=== PATIENT | male | born 1995 ===

== ENCOUNTER 2018-10-11 18:56 | Emergency (ER) | payer SELFPAY ==
[2018-10-11] MEDS ORDERED: ACETAMINOPHEN 325 MG TABLET ONE (21:00)
[2018-10-11] MEDS ORDERED: ONDANSETRON 4 MG/2 ML VIAL ONE (21:00)
[2018-10-11] MEDS ORDERED: NA CHLORIDE 0.9% 1,000 ML ONE (21:00)
[2018-10-11 21:27] LABS: Absolute Lymphocytes (CBC) 1.1 K/uL (0.7-4.9); Absolute Monocytes 0.5 K/uL (0.1-1.3); Absolute Neutrophil 9.3 K/uL (1.8-8.0); Basophils % 0.4 % (0-1.3); Eosinophils % 0.4 % (0-4.4); Hematocrit 47.7 % (39.6-49.0); MPV 10.2 fL (7.6-11.3); Monocytes % 4.7 % (3.3-12.3); RBC Red Blood Cell Count 5.89 M/uL (4.33-5.43)
[2018-10-11 21:47] LABS: Urine Bacteria NONE SEEN /HPF (NONE SEEN); Urine RBC <5 /HPF (NONE SEEN)
[2018-10-11 21:48] LABS: Urine Culture Reflex Order NOT NEEDED
[2018-10-11 21:49] LABS: ALT/SGPT 36 U/L (12-78); AST/SGOT 16 U/L (15-37); Alkaline Phosphatase 179 U/L (45-117); BUN Blood Urea Nitrogen 12 mg/dL (7-18); Bicarbonate 27 mmol/L (21-32); Bilirubin Direct 0.1 mg/dL (0-0.2); Bilirubin Total 0.5 mg/dL (0.2-1.0); Glucose Level 88 mg/dL (74-106); Lipase 70 U/L (73-393); Potassium 4.2 mmol/L (3.5-5.1); Sodium Level 137 mmol/L (136-145)
[2018-10-11 22:41] LABS: Urine Blood 1+ (NEG); Urine Glucose NEGATIVE (NEG); Urine Protein NEGATIVE (NEG); Urine pH 5.5 (5.0-7.0)
--- NOTE | 2018-10-11 23:39 | EDPHYS ---
Physician Documentation [facility] Name: Jean-Paul Will Age: 23 yrs Sex: Male : 1995 Arrival Date: 10/11/2018 Time: 18:57 Bed 6 Private MD: ED Physician Ayaz Florence HPI: 10/12 02:28 This 23 yrs old Male presents to ER via Ambulatory with complaints of Diarrhea. gs 02:28 The patient presents to the emergency department with nausea, vomiting, diarrhea. gs Onset: The symptoms/episode began/occurred 3 day(s) ago. Possible causes: unknown. The symptoms are aggravated by nothing. The symptoms are alleviated by nothing. Associated signs and symptoms: Pertinent positives: fever, low back pain. Severity of symptoms: At their worst the symptoms were moderate in the emergency department the symptoms are unchanged. The patient has experienced similar episodes in the past, a few times. The patient has not recently seen a physician. Historical: - Allergies: 10/11 19:26 Amoxicillin; bb 19:26 Benadryl; bb - Home Meds: 19:26 None [Active]; bb - PMHx: 19:26 Hypertension; bb - PSHx: 19:26 None; bb - Immunization history:: Adult Immunizations up to date. - Social history:: Smoking status: Patient uses tobacco products, smokes one-half pack cigarettes per day, Patient uses alcohol, occasionally. Patient/guardian denies using street drugs. - Ebola Screening: : No symptoms or risks identified at this time. ROS: 10/12 02:28 All other systems are negative. gs Exam: 02:28 Head/Face: Normocephalic, atraumatic. Eyes: Pupils equal round and reactive to light, gs extra-ocular motions intact. Lids and lashes normal. Conjunctiva and sclera are non-icteric and not injected. Cornea within normal limits. Periorbital areas with no swelling, redness, or edema. ENT: Nares patent. No nasal discharge, no septal abnormalities noted. Tympanic membranes are normal and external auditory canals are clear. Oropharynx with no redness, swelling, or masses, exudates, or evidence of obstruction, uvula midline. Mucous membranes moist. Neck: Trachea midline, no thyromegaly or masses palpated, and no cervical lymphadenopathy. Supple, full range of motion without nuchal rigidity, or vertebral point tenderness. No Meningismus. Chest/axilla: Normal chest wall appearance and motion. Nontender with no deformity. No lesions are appreciated. 02:28 Respiratory: Lungs have equal breath sounds bilaterally, clear to auscultation and percussion. No rales, rhonchi or wheezes noted. No increased work of breathing, no retractions or nasal flaring. Abdomen/GI: Soft, non-tender, with normal bowel sounds. No distension or tympany. No guarding or rebound. No evidence of tenderness throughout. Skin: Warm, dry with normal turgor. Normal color with no rashes, no lesions, and no evidence of cellulitis. MS/ Extremity: Pulses equal, no cyanosis. Neurovascular intact. Full, normal range of motion. Neuro: Awake and alert, GCS 15, oriented to person, place, time, and situation. Cranial nerves II-XII grossly intact. Motor strength 5/5 in all extremities. Sensory grossly intact. Cerebellar exam normal. Normal gait. 02:28 Constitutional: The patient appears alert, awake. 02:28 Cardiovascular: Rate: tachycardic, Rhythm: regular, Pulses: no pulse deficits are appreciated. 02:28 Back: CVA tenderness, that is mild, is noted bilaterally. Vital Signs: 10/11 19:26 BP 144 / 108; Pulse 114; Resp 18; Temp 100(O); Pulse Ox 98% on R/A; Weight 104.33 kg bb (R); Height 5 ft. 7 in. (170.18 cm) (R); Pain 6/10; 20:12 BP 131 / 50; Pulse 114; Resp 18 S; Pulse Ox 100% on R/A; jd3 21:44 BP 128 / 37; Pulse 94; Resp 18; Pulse Ox 98% on R/A; ea 23:45 BP 125 / 84; Pulse 77; Resp 18; Temp 97.8(O); Pulse Ox 100% on R/A; Pain 0/10; fc 19:26 Body Mass Index 36.02 (104.33 kg, 170.18 cm) bb MDM: 20:26 Patient medically screened. 10/12 02:28 Differential diagnosis: viral gastroenteritis, gastroenteritis, flu,stone,uti. Data gs reviewed: vital signs, nurses notes. 02:28 Counseling: I had a detailed discussion with the patient and/or guardian regarding: the historical points, exam findings, and any diagnostic results supporting the discharge/admit diagnosis, lab results, radiology results, the need for outpatient follow up. Response to treatment: the patient's symptoms have markedly improved after treatment, the patient's condition has returned to base line, and as a result, I will discharge patient. 10/11 20:27 Order name: Basic Metabolic Panel; Complete Time: 21:54 10/11 20:27 Order name: CBC with Diff; Complete Time: :54 10/11 20:27 Order name: Hepatic Function; Complete Time: :54 10/11 20:27 Order name: Lipase; Complete Time: :54 10/11 20:27 Order name: Urine Microscopic Only; Complete Time: :54 10/11 20:27 Order name: Flu; Complete Time: 21:54 10/11 20:27 Order name: IV Saline Lock; Complete Time: 21:23 10/11 20:27 Order name: Labs collected and sent; Complete Time: 21:23 10/11 20:27 Order name: Urine Dipstick-Ancillary (obtain specimen); Complete Time: 21:14 10/11 21:29 Order name: Urine Dipstick--Ancillary (enter results); Complete Time: 22:55 2 10/11 21:54 Order name: CT Stone Protocol Administered Medications: 10/11 21:19 Drug: NS 0.9% 1000 ml Route: IV; Rate: 1 bolus; Site: right antecubital; ea 23:50 Follow up: Response: No adverse reaction; Marked relief of symptoms; IV Status: fc Completed infusion; IV Intake: 1000ml 21:20 Drug: Zofran 4 mg Route: IVP; Site: right antecubital; ea 23:50 Follow up: Response: No adverse reaction; Nausea is decreased fc 21:20 Drug: Tylenol 650 mg Route: PO; ea 23:50 Follow up: Response: No adverse reaction; Temperature is decreased fc Disposition: 10/11/18 23:38 Discharged to Home. Impression: Fever presenting with conditions classified elsewhere, Diarrhea, unspecified. - Condition is Stable. - Discharge Instructions: Diarrhea, Adult, Viral Gastroenteritis, Adult, [id number]. - Prescriptions for Zofran 4 mg Oral Tablet - take 1 tablet by ORAL route every 12 hours As needed; 6 tablet. - Medication Reconciliation Form, Thank You Letter, Antibiotic Education, Prescription Opioid Use form. - Follow up: Private Physician; When: 2 - 3 days; Reason: Re-evaluation by your physician. Signatures: Dispatcher [employer] Shayla Cassidy RN RN fc Ballard, Brenda, RN RN bb Antunez, Elena, RN RN ea Starr, Gregory, MD MD gs Corrections: (The following items were deleted from the chart) 23:53 23:38 10/11/2018 23:38 Discharged to Home. Impression: Fever presenting with conditions fc classified elsewhere; Diarrhea, unspecified. Condition is Stable. Forms are Medication Reconciliation Form, Thank You Letter, Antibiotic Education, Prescription Opioid Use. Follow up: Private Physician; When: 2 - 3 days; Reason: Re-evaluation by your physician. gs
--- NOTE | 2018-10-11 23:39 | ER ---
Nurse's Notes [facility] Name: Jean-Paul Will Age: 23 yrs Sex: Male : 1995 Arrival Date: 10/11/2018 Time: 18:57 Bed 6 Private MD: Diagnosis: Fever presenting with conditions classified elsewhere;Diarrhea, unspecified Presentation: 10/11 19:24 Presenting complaint: Patient states: he has been having low back pain constantly x 1 bb week prior to that is was intermittent denies dysuria woke up this morning with nausea, diarrhea, fatigue, and noticed some red spots under his eyes. Transition of care: patient was not received from another setting of care. Onset of symptoms was October 04, 2018. Risk Assessment: Do you want to hurt yourself or someone else? Patient reports no desire to harm self or others. Initial Sepsis Screen: Does the patient meet any 2 criteria? No. Patient's initial sepsis screen is negative. Does the patient have a suspected source of infection? No. Patient's initial sepsis screen is negative. Care prior to arrival: None. 19:24 Method Of Arrival: Ambulatory bb 19:24 Acuity: CHASITY 3 bb Historical: - Allergies: 19:26 Amoxicillin; bb 19:26 Benadryl; bb - Home Meds: 19:26 None [Active]; bb - PMHx: 19:26 Hypertension; bb - PSHx: 19:26 None; bb - Immunization history:: Adult Immunizations up to date. - Social history:: Smoking status: Patient uses tobacco products, smokes one-half pack cigarettes per day, Patient uses alcohol, occasionally. Patient/guardian denies using street drugs. - Ebola Screening: : No symptoms or risks identified at this time. Screenin:07 Abuse screen: Denies threats or abuse. Nutritional screening: No deficits noted. jd3 Tuberculosis screening: No symptoms or risk factors identified. Fall Risk Ambulatory Aid- None/Bed Rest/Nurse Assist (0 pts). Gait- Normal/Bed Rest/Wheelchair (0 pts) Mental Status- Oriented to own ability (0 pts). Total Esparza Fall Scale indicates No Risk (0-24 pts). Assessment: 20:05 General: Appears in no apparent distress. uncomfortable, Behavior is calm, cooperative, jd3 appropriate for age. Pain: Complains of pain in low back area Quality of pain is described as aching. Neuro: Level of Consciousness is awake, alert, obeys commands, Oriented to person, place, time, situation, Appropriate for age. Cardiovascular: Heart tones S1 S2 present Capillary refill < 3 seconds Patient's skin is warm and dry. Respiratory: Airway is patent Respiratory effort is even, unlabored, Respiratory pattern is regular, symmetrical, Breath sounds are clear bilaterally. GI: Abdomen is round non-distended, Bowel sounds present X 4 quads. Abd is soft and non tender X 4 quads. Reports nausea. : No signs and/or symptoms were reported regarding the genitourinary system. EENT: No signs and/or symptoms were reported regarding the EENT system. Derm: Skin is intact, Skin is dry, Skin is normal, Skin temperature is warm Rash noted that is itchy, red, on right eye and left eye. Musculoskeletal: Circulation, motion, and sensation intact. Range of motion: intact in all extremities. 21:43 Reassessment: Patient and/or family updated on plan of care and expected duration. Pain ea level reassessed. Patient is alert, oriented x 3, equal unlabored respirations, skin warm/dry/pink. 22:53 Reassessment: Patient and/or family updated on plan of care and expected duration. Pain ea level reassessed. Patient is alert, oriented x 3, equal unlabored respirations, skin warm/dry/pink. 23:52 Reassessment: Patient and/or family updated on plan of care and expected duration. Pain jd3 level reassessed. Patient is alert, oriented x 3, equal unlabored respirations, skin warm/dry/pink. Vital Signs: 19:26 BP 144 / 108; Pulse 114; Resp 18; Temp 100(O); Pulse Ox 98% on R/A; Weight 104.33 kg bb (R); Height 5 ft. 7 in. (170.18 cm) (R); Pain 6/10; 20:12 BP 131 / 50; Pulse 114; Resp 18 S; Pulse Ox 100% on R/A; jd3 21:44 BP 128 / 37; Pulse 94; Resp 18; Pulse Ox 98% on R/A; ea 23:45 BP 125 / 84; Pulse 77; Resp 18; Temp 97.8(O); Pulse Ox 100% on R/A; Pain 0/10; fc 19:26 Body Mass Index 36.02 (104.33 kg, 170.18 cm) bb ED Course: 18:57 Patient arrived in ED. rg4 19:26 Triage completed. bb 19:26 Arm band placed on right wrist. Patient placed in waiting room, Patient notified of bb wait time. 20:05 Ben Montenegro RN is Primary Nurse. jd3 20:07 Ayaz Florence MD is Attending Physician. gs 20:08 Patient has correct armband on for positive identification. Bed in low position. Call jd3 light in reach. Side rails up X 1. Adult w/ patient. 21:10 Inserted saline lock: 20 gauge in right antecubital area, using aseptic technique. ea Blood collected. 21:14 Missed attempt(s): 22 gauge in right hand. lt1 21:14 Flu and/or RSV swab sent to lab. lt1 21:14 Flu Sent. lt1 22:21 CT Stone Protocol In Process Unspecified. EDMS 23:49 No provider procedures requiring assistance completed. IV discontinued, intact, fc bleeding controlled, No redness/swelling at site. Pressure dressing applied. Administered Medications: 21:19 Drug: NS 0.9% 1000 ml Route: IV; Rate: 1 bolus; Site: right antecubital; ea 23:50 Follow up: Response: No adverse reaction; Marked relief of symptoms; IV Status: fc Completed infusion; IV Intake: 1000ml 21:20 Drug: Zofran 4 mg Route: IVP; Site: right antecubital; ea 23:50 Follow up: Response: No adverse reaction; Nausea is decreased fc 21:20 Drug: Tylenol 650 mg Route: PO; ea 23:50 Follow up: Response: No adverse reaction; Temperature is decreased fc Intake: 23:50 IV: 1000ml; Total: 1000ml. fc Outcome: 23:38 Discharge ordered by . gs 23:52 Discharged to home ambulatory, with friend. fc 23:52 Condition: good 23:52 Discharge instructions given to patient, friend, Instructed on discharge instructions, follow up and referral plans. medication usage, increase fluid intake Demonstrated understanding of instructions, follow-up care, medications, increased fluid intake Prescriptions given X 1. 23:53 Patient left the ED. fc Signatures: Dispatcher [facility] EDMN Shayla Betancourt RN RN Courtney Merrill, RN RN jailyn Archer, Vivi rg4 Julia Rocha, RN RN Ayaz Dhaliwal MD MD gs Davies, Jonathon RN RN jd3 Kelsi Castro 1
--- NOTE | 2018-10-12 11:38 | RAD REPORT ---
EXAM DESCRIPTION: CT - Stone Protocol - 10/11/2018 10:50 pm CLINICAL HISTORY: Abdominal pain. COMPARISON: None. TECHNIQUE: CT scan of the abdomen and pelvis without IV contrast. This exam was performed according to our departmental dose-optimization program, which includes automated exposure control, adjustment of the mA and/or kV according to patient size and/or use of iterative reconstruction technique. FINDINGS: The lung bases are clear. No pleural or pericardial effusions. There is no hiatal hernia. The liver, spleen, pancreas, gallbladder, adrenal glands, and kidneys are unremarkable. No urinary st ones are seen. The pelvic organs are also unremarkable. No small bowel obstruction. The appendix is normal. There is no evidence of diverticulitis. No intrap eritoneal free fluid or free air is identified. There are mildly prominent mesenteric lymph nodes, no n-specific. The aorta is normal caliber. No acute osseous findings are appreciated. IMPRESSION: 1. No urinary stones or hydronephrosis. 2. Mildly prominent mesenteric lymph nodes, non-specific. This may be secondary to recent infection /inflammation. Electronically signed by: Goran Hagen MD 10/11/2018 10:40 PM CDT Due to temporary technical issues with the PACS/Fluency reporting system, reports are being signed by the in house radiologist as a courtesy to ensure prompt reporting. The interpreting radiologist is f ully responsible for the content of the report.
== END 2018-10-11 23:53 | disposition home or self-care (01) ==
LOC: ER 18:56
DX: R19.7 Diarrhea, unspecified (principal); I10 Essential (primary) hypertension; F17.210 Nicotine dependence, cigarettes, uncomplicated; Z88.1 Allergy status to other antibiotic agents; Z88.8 Allergy status to other drugs, medicaments and biological substances
CPT/HCPCS: 36415; 74176; 76377; 80048; 80076; 81003; 81015; 83690; 85025; 87804; 96361; 96374; 99284; J2405; J7030

== ENCOUNTER 2020-07-12 11:45 | Emergency (ER) | payer SELFPAY ==
--- NOTE | 2020-07-12 14:17 | RAD REPORT ---
EXAM DESCRIPTION: [facility]baldo Single View07/12/2020 1:52 pm CLINICAL HISTORY: Cough COMPARISON: none FINDINGS: The lungs appear clear of acute infiltrate. The heart is normal size IMPRESSION: No acute abnormalities displayed
--- NOTE | 2020-07-12 14:28 | ER ---
Nurse's Notes [facility] Name: Jean-Paul Will Age: 25 yrs Sex: Male : 1995 Arrival Date: 07/12/2020 Time: 11:45 Bed 25 Private MD: Diagnosis: Epistaxis;Cough Presentation: 07/12 12:07 Chief complaint: Patient states: chest pain from coughing that has been getting worse, em started 3-4 days ago, also reports nose bleed that started last night x2, denies N/V or fever, last tested for covid 1.5 months ago was neg. Coronavirus screen: Client denies travel out of the [place] in the last 14 days. Ebola Screen: Patient negative for fever greater than or equal to 101.5 degrees Fahrenheit, and additional compatible Ebola Virus Disease symptoms Patient denies exposure to infectious person. Patient denies travel to an Ebola-affected area in the 21 days before illness onset. No symptoms or risks identified at this time. Initial Sepsis Screen: Does the patient meet any 2 criteria? No. Patient's initial sepsis screen is negative. Does the patient have a suspected source of infection? No. Patient's initial sepsis screen is negative. Risk Assessment: Do you want to hurt yourself or someone else? Patient reports no desire to harm self or others. Onset of symptoms was July 09, 2020. 12:07 Method Of Arrival: Ambulatory em 12:07 Acuity: CHASITY 3 em Historical: - Allergies: 12:10 Amoxicillin; em 12:10 Benadryl; em - PMHx: 12:10 Hypertension; Asthma; em - PSHx: 12:10 None; em - Immunization history:: Adult Immunizations up to date. - Social history:: Smoking status: Patient reports the use of cigarette tobacco products, denies chronic smoking, but will smoke occasionally. Screenin:10 Abuse screen: Denies threats or abuse. Nutritional screening: No deficits noted. em Tuberculosis screening: No symptoms or risk factors identified. Fall Risk None identified. Assessment: 12:07 General: Appears in no apparent distress. comfortable, Behavior is calm, cooperative, em appropriate for age, Denies fever. Pain: Denies pain. Pain does not radiate. Pain began 2-3 days ago. Neuro: Level of Consciousness is awake, alert, obeys commands, Oriented to person, place, time, situation, Appropriate for age. Cardiovascular: Capillary refill < 3 seconds Patient's skin is warm and dry. Respiratory: Reports cough that is non-productive, pain with cough Airway is patent Respiratory effort is even, unlabored, Respiratory pattern is regular, symmetrical. GI: Patient currently denies nausea, vomiting. Derm: Skin is intact, is healthy with good turgor, Skin is pink, warm \T\ dry. Musculoskeletal: Capillary refill < 3 seconds, Range of motion: intact in all extremities. 14:01 Reassessment: Patient appears in no apparent distress at this time. Patient and/or em family updated on plan of care and expected duration. Pain level reassessed. Patient is alert, oriented x 3, equal unlabored respirations, skin warm/dry/pink. pending results from x-rays. 14:45 Reassessment: Patient is alert, oriented x 3, equal unlabored respirations, skin aa5 warm/dry/pink. Vital Signs: 12:07 BP 131 / 64; Pulse 76; Resp 18; Temp 98.3(O); Pulse Ox 98% on R/A; Weight 96.16 kg; em Height 5 ft. 7 in. (170.18 cm); Pain 0/10; 12:07 Body Mass Index 33.20 (96.16 kg, 170.18 cm) em ED Course: 11:45 Patient arrived in ED. ag5 12:09 Triage completed. em 12:10 Arm band placed on. em 12:10 Patient maintains SpO2 saturation greater than 95% on room air. em 13:22 Beronica Keys FNP-C is PHCP. kb 13:22 Moise Jorge MD is Attending Physician. kb 13:52 Chest Single View XRAY In Process Unspecified. EDMS 13:56 Michael Babb, RN is Primary Nurse. em 14:00 Patient has correct armband on for positive identification. Pulse ox on. NIBP on. em 14:45 No provider procedures requiring assistance completed. Patient did not have IV access aa5 during this emergency room visit. Administered Medications: No medications were administered Outcome: 14:27 Discharge ordered by . kb 14:45 Discharged to home ambulatory. aa5 14:45 Condition: good 14:45 Discharge instructions given to patient, Instructed on discharge instructions, follow up and referral plans. medication usage, Demonstrated understanding of instructions, follow-up care, medications, Prescriptions given X 1. 14:49 Patient left the ED. em Signatures: Dispatcher [employer] Beronica Gupta, MARGUERITE JACOBSON-Michael Reese, RN RN Indy Mason RN RN aa5 Karol Doherty [facility]
--- NOTE | 2020-07-12 14:28 | EDPHYS ---
Physician Documentation [facility] Name: Jean-Paul Will Age: 25 yrs Sex: Male : 1995 Arrival Date: 07/12/2020 Time: 11:45 Bed 25 Private MD: ED Physician Moise Jorge HPI: 07/12 14:25 This 25 yrs old Unknown Male presents to ER via Ambulatory with complaints of Chest kb Pain. 14:25 The patient or guardian reports cough, that is intermittent, described as mild, with no kb sputum. Onset: The symptoms/episode began/occurred 5 day(s) ago. Severity of symptoms: At their worst the symptoms were mild, in the emergency department the symptoms are unchanged. Modifying factors: The symptoms are alleviated by nothing, the symptoms are aggravated by nothing. Associated signs and symptoms: Pertinent positives: chest pain, with cough, nosebleeds, Pertinent negatives: diarrhea, ear ache, fever, nausea, rhinorrhea, sore throat, vomiting. The patient has not experienced similar symptoms in the past. The patient has not recently seen a physician. Pt reports chronic cough secondary to smoking. States he has been coughing more recently and started having chest pain with cough 4-5 days ago. States he has also been having nosebleeds for the past 2 days. . Historical: - Allergies: 12:10 Amoxicillin; em 12:10 Benadryl; em - PMHx: 12:10 Hypertension; Asthma; em - PSHx: 12:10 None; em - Immunization history:: Adult Immunizations up to date. - Social history:: Smoking status: Patient reports the use of cigarette tobacco products, denies chronic smoking, but will smoke occasionally. ROS: 14:24 Constitutional: Negative for fever, chills, and weight loss, Abdomen/GI: Negative for kb abdominal pain, nausea, vomiting, diarrhea, and constipation, Back: Negative for injury and pain, MS/Extremity: Negative for injury and deformity, Skin: Negative for injury, rash, and discoloration, Neuro: Negative for headache, weakness, numbness, tingling, and seizure. 14:24 ENT: Positive for nose bleed. 14:24 Cardiovascular: Positive for chest pain, with cough, Negative for edema, orthopnea, palpitations, paroxysmal nocturnal dyspnea. 14:24 Respiratory: Positive for cough, Negative for dyspnea on exertion, hemoptysis, orthopnea, pleurisy, shortness of breath, sputum production, wheezing. Exam: 14:24 Constitutional: This is a well developed, well nourished patient who is awake, alert, kb and in no acute distress. Head/Face: Normocephalic, atraumatic. ENT: Nares patent. No nasal discharge, no septal abnormalities noted. Tympanic membranes are normal and external auditory canals are clear. Oropharynx with no redness, swelling, or masses, exudates, or evidence of obstruction, uvula midline. Mucous membranes moist. Neck: Trachea midline, no thyromegaly or masses palpated, and no cervical lymphadenopathy. Supple, full range of motion without nuchal rigidity, or vertebral point tenderness. No Meningismus. Cardiovascular: Regular rate and rhythm with a normal S1 and S2. No gallops, murmurs, or rubs. Normal PMI, no JVD. No pulse deficits. Respiratory: Lungs have equal breath sounds bilaterally, clear to auscultation and percussion. No rales, rhonchi or wheezes noted. No increased work of breathing, no retractions or nasal flaring. Abdomen/GI: Soft, non-tender, with normal bowel sounds. No distension or tympany. No guarding or rebound. No evidence of tenderness throughout. Skin: Warm, dry with normal turgor. Normal color with no rashes, no lesions, and no evidence of cellulitis. MS/ Extremity: Pulses equal, no cyanosis. Neurovascular intact. Full, normal range of motion. Neuro: Awake and alert, GCS 15, oriented to person, place, time, and situation. Cranial nerves II-XII grossly intact. Motor strength 5/5 in all extremities. Sensory grossly intact. Cerebellar exam normal. Normal gait. 14:24 Chest/axilla: Inspection: normal, Palpation: tenderness, that is mild, of the anterior aspect of right upper chest, anterior aspect of left upper chest and mid-sternal area, that totally reproduces the patient's complaints. Vital Signs: 12:07 BP 131 / 64; Pulse 76; Resp 18; Temp 98.3(O); Pulse Ox 98% on R/A; Weight 96.16 kg; em Height 5 ft. 7 in. (170.18 cm); Pain 0/10; 12:07 Body Mass Index 33.20 (96.16 kg, 170.18 cm) em MDM: 13:54 Patient medically screened. kb 14:24 Data reviewed: vital signs, nurses notes. Data interpreted: Pulse oximetry: on room air kb is 98 %. Interpretation: normal. Counseling: I had a detailed discussion with the patient and/or guardian regarding: the historical points, exam findings, and any diagnostic results supporting the discharge/admit diagnosis, radiology results, the need for outpatient follow up, a family practitioner, to return to the emergency department if symptoms worsen or persist or if there are any questions or concerns that arise at home. 07/12 13:12 Order name: Chest Single View XRAY; Complete Time: 14:20 kb Administered Medications: No medications were administered Disposition: 07/13 09:32 Co-signature as Attending Physician, Moise Jorge MD I agree with the assessment and lorne plan of care. Disposition: 07/12/20 14:27 Discharged to Home. Impression: Epistaxis, Cough. - Condition is Stable. - Discharge Instructions: Costochondritis, [id number], Cough, Adult, [id number], Nosebleed, [id number]. - Prescriptions for Ibuprofen 800 mg Oral Tablet - take 1 tablet by ORAL route every 8 hours As needed take with food; 30 tablet. - Medication Reconciliation Form, Thank You Letter, Antibiotic Education, Prescription Opioid Use, Work release form form. - Follow up: Emergency Department; When: As needed; Reason: Worsening of condition. Follow up: Private Physician; When: 2 - 3 days; Reason: Recheck today's complaints, Continuance of care, Re-evaluation by your physician. Signatures: Dispatcher [employer] Beronica Gupta, Moise Tejada MD MD cha Munoz, Edgar, RN RN em Corrections: (The following items were deleted from the chart) 07/12 14:49 14:27 07/12/2020 14:27 Discharged to Home. Impression: Epistaxis; Cough. Condition is em Stable. Forms are Medication Reconciliation Form, Thank You Letter, Antibiotic Education, Prescription Opioid Use. Follow up: Emergency Department; When: As needed; Reason: Worsening of condition. Follow up: Private Physician; When: 2 - 3 days; Reason: Recheck today's complaints, Continuance of care, Re-evaluation by your physician. kb
[2020-07-14 03:22] VITALS: BP 131/64; TEMP 98.3; O2SAT 98
== END 2020-07-12 14:49 | disposition home or self-care (01) ==
LOC: ER 11:45
DX: R04.0 Epistaxis (principal); I10 Essential (primary) hypertension; Z72.0 Tobacco use; Z88.1 Allergy status to other antibiotic agents; Z88.8 Allergy status to other drugs, medicaments and biological substances
CPT/HCPCS: 71045; 99284

== ENCOUNTER 2020-12-08 17:26 | Emergency (ER) | payer SELFPAY ==
[2020-12-08 18:21] LABS: Absolute Lymphocytes (CBC) 2.5 K/uL (0.7-4.9); Basophils % 0.3 % (0-1.3); Lymphocytes % 23.5 % (15.3-44.8); MPV 9.3 fL (7.6-11.3); RBC Red Blood Cell Count 6.18 M/uL (4.33-5.43)
[2020-12-08 18:41] LABS: ALT/SGPT 37 U/L (12-78); AST/SGOT 20 U/L (15-37); Alkaline Phosphatase 143 U/L (45-117); BUN Blood Urea Nitrogen 12 mg/dL (7-18); Bicarbonate 25 mmol/L (21-32); Bilirubin Direct 0.2 mg/dL (0-0.2); Bilirubin Total 0.6 mg/dL (0.2-1.0); Glucose Level 81 mg/dL (74-106); Lipase 98 U/L (73-393); Potassium 3.5 mmol/L (3.5-5.1); Sodium Level 140 mmol/L (136-145)
[2020-12-08] MEDS ORDERED: ONDANSETRON 4 MG/2 ML VIAL ONE (18:44)
[2020-12-08] MEDS ORDERED: PANTOPRAZOLE 40 MG INJ ONE (18:44)
[2020-12-08] MEDS ORDERED: NA CHLORIDE 0.9% 1,000 ML ONE (18:45)
--- NOTE | 2020-12-08 19:01 | ER ---
Nurse's Notes [facility] Name: Jean-Paul Will Age: 25 yrs Sex: Male : 1995 Arrival Date: 12/08/2020 Time: 17:29 Bed 7 Private MD: Diagnosis: Nausea and vomiting;Diarrhea, unspecified Presentation: 12/08 17:51 Chief complaint: Patient states: HE HAD BRIGHT RED BLOOD IN HIS VOMIT TODAY. PATIENT ap3 STATES HE HAS BEEN ILL FOR ABOUT 10 DAYS NOW, HOWEVER RECENTLY TESTED NEGATIVE FOR COVID. Coronavirus screen: At this time, the client does not indicate any symptoms associated with coronavirus-19. Ebola Screen: No symptoms or risks identified at this time. Initial Sepsis Screen: Does the patient meet any 2 criteria? No. Patient's initial sepsis screen is negative. Does the patient have a suspected source of infection? No. Patient's initial sepsis screen is negative. Risk Assessment: Do you want to hurt yourself or someone else? Patient reports no desire to harm self or others. Onset of symptoms was November 28, 2020. 17:51 Method Of Arrival: Ambulatory ap3 17:51 Acuity: CHASITY 3 ap3 Historical: - Allergies: 17:54 Amoxicillin; ap3 - PMHx: 17:54 Asthma; Hypertension; ap3 - PSHx: 17:57 None; ap3 - Immunization history:: Adult Immunizations up to date. - Social history:: Smoking status: unknown. Screenin:55 Abuse screen: Denies threats or abuse. Nutritional screening: No deficits noted. ap3 Tuberculosis screening: No symptoms or risk factors identified. Fall Risk None identified. Assessment: 17:54 General: Appears in no apparent distress. comfortable, Behavior is calm, cooperative, ap3 appropriate for age. Pain: Denies pain. Neuro: Level of Consciousness is awake, alert, obeys commands, Oriented to person, place, time, situation. Cardiovascular: Capillary refill < 3 seconds. Respiratory: Airway is patent Respiratory effort is even, unlabored, Respiratory pattern is regular, symmetrical. GI: Reports diarrhea, nausea, vomiting. : No signs and/or symptoms were reported regarding the genitourinary system. EENT: No signs and/or symptoms were reported regarding the EENT system. Derm: No signs and/or symptoms reported regarding the dermatologic system. Musculoskeletal: No signs and/or symptoms reported regarding the musculoskeletal system. Vital Signs: 17:51 BP 156 / 106; Pulse 91; Resp 17; Pulse Ox 100% on R/A; ap3 18:46 BP 115 / 57; Pulse 86; Pulse Ox 100% on R/A; Pain 0/10; ap3 ED Course: 17:29 Patient arrived in ED. mr 17:44 Beronica Keys FNP-C is [facility]. kb 17:44 Moise Jorge MD is Attending Physician. kb 17:51 Razia Hitchcock, RN is Primary Nurse. ap3 17:53 Triage completed. ap3 17:56 Arm band placed on right wrist. ap3 17:56 Patient has correct armband on for positive identification. Bed in low position. Call ap3 light in reach. Side rails up X 1. Pulse ox on. NIBP on. Door closed. Noise minimized. 18:13 Inserted saline lock: 20 gauge in right wrist, using aseptic technique. Blood collected.ap3 19:14 No provider procedures requiring assistance completed. IV discontinued, intact, ap3 bleeding controlled, No redness/swelling at site. Pressure dressing applied. Administered Medications: 18:32 Drug: Zofran (Ondansetron) 4 mg Route: IVP; Site: right wrist; ap3 18:57 Follow up: Response: No adverse reaction; Nausea is decreased ap3 18:32 Drug: NS 0.9% 1000 ml Route: IV; Rate: 1000 ml; Site: right wrist; ap3 19:15 Follow up: Response: No adverse reaction; IV Status: Completed infusion ap3 18:33 Drug: ProTONIX (pantoprazole) 40 mg Route: IVP; Site: right wrist; ap3 18:57 Follow up: Response: No adverse reaction; Nausea is decreased ap3 Outcome: 19:01 Discharge ordered by . kb 19:14 Discharged to home ambulatory. ap3 19:14 Condition: good 19:14 Discharge instructions given to patient, Instructed on discharge instructions, follow up and referral plans. medication usage, Demonstrated understanding of instructions, follow-up care, medications, Prescriptions given X 2. 19:17 Patient left the ED. ap3 Signatures: Beronica Keys FNP-C FNP-Julio C Beck Susan mr Razia Hitchcock, RN RN ap3
--- NOTE | 2020-12-08 19:01 | EDPHYS ---
Physician Documentation [facility] Name: Jean-Paul Will Age: 25 yrs Sex: Male : 1995 Arrival Date: 12/08/2020 Time: 17:29 Bed 7 Private MD: ED Physician Moise Jorge HPI: 12/08 21:43 This 25 yrs old Unknown Male presents to ER via Ambulatory with complaints of Vomiting kb Blood. 21:43 The patient presents to the emergency department with nausea, vomiting, diarrhea. kb Onset: The symptoms/episode began/occurred 1 week(s) ago. Possible causes: unknown. The symptoms are aggravated by nothing. The symptoms are alleviated by nothing. Associated signs and symptoms: Pertinent positives: diarrhea, nausea, vomiting. Severity of symptoms: At their worst the symptoms were moderate in the emergency department the symptoms are unchanged. The patient has not experienced similar symptoms in the past. The patient has not recently seen a physician. Diarrhea for a week, nausea and vomiting for a few days. States he noticed some blood in the vomit so he wanted to get checked out. Denies fever, abd pain. Historical: - Allergies: 17:54 Amoxicillin; ap3 - PMHx: 17:54 Asthma; Hypertension; ap3 - PSHx: 17:57 None; ap3 - Immunization history:: Adult Immunizations up to date. - Social history:: Smoking status: unknown. ROS: 21:42 Constitutional: Negative for fever, chills, and weight loss. kb 21:42 Abdomen/GI: Positive for nausea, vomiting, and diarrhea, hematemesis, Negative for abdominal pain. 21:42 All other systems are negative. Exam: 21:42 Constitutional: This is a well developed, well nourished patient who is awake, alert, kb and in no acute distress. Head/Face: Normocephalic, atraumatic. ENT: Moist Mucous membranes Cardiovascular: Regular rate and rhythm with a normal S1 and S2. No gallops, murmurs, or rubs. No pulse deficits. Respiratory: Respirations even and unlabored. No increased work of breathing, no retractions or nasal flaring. Abdomen/GI: Soft, non-tender. No distention Skin: Warm, dry with normal turgor. Normal color. MS/ Extremity: Pulses equal, no cyanosis. Neurovascular intact. Full, normal range of motion. Neuro: Awake and alert, GCS 15, oriented to person, place, time, and situation. Moves all extremities. Normal gait. Psych: Awake, alert, with orientation to person, place and time. Behavior, mood, and affect are within normal limits. Vital Signs: 17:51 BP 156 / 106; Pulse 91; Resp 17; Pulse Ox 100% on R/A; ap3 18:46 BP 115 / 57; Pulse 86; Pulse Ox 100% on R/A; Pain 0/10; ap3 MDM: 17:45 Patient medically screened. kb 21:43 Data reviewed: vital signs, nurses notes. Data interpreted: Pulse oximetry: on room air kb is 100 %. Interpretation: normal. Counseling: I had a detailed discussion with the patient and/or guardian regarding: the historical points, exam findings, and any diagnostic results supporting the discharge/admit diagnosis, lab results, the need for outpatient follow up, a family practitioner, a crate liner, to return to the emergency department if symptoms worsen or persist or if there are any questions or concerns that arise at home. 12/08 17:45 Order name: Basic Metabolic Panel; Complete Time: 18:44 kb 12/08 17:45 Order name: CBC with Diff; Complete Time: 18:41 kb 12/08 17:45 Order name: Hepatic Function; Complete Time: 18:44 kb 12/08 17:45 Order name: Lipase; Complete Time: 18:44 kb 12/08 17:45 Order name: IV Saline Lock; Complete Time: 18:11 kb 12/08 17:45 Order name: Labs collected and sent; Complete Time: 18:11 kb Administered Medications: 18:32 Drug: Zofran (Ondansetron) 4 mg Route: IVP; Site: right wrist; ap3 18:57 Follow up: Response: No adverse reaction; Nausea is decreased ap3 18:32 Drug: NS 0.9% 1000 ml Route: IV; Rate: 1000 ml; Site: right wrist; ap3 19:15 Follow up: Response: No adverse reaction; IV Status: Completed infusion ap3 18:33 Drug: ProTONIX (pantoprazole) 40 mg Route: IVP; Site: right wrist; ap3 18:57 Follow up: Response: No adverse reaction; Nausea is decreased ap3 Disposition: 12/09 07:50 Co-signature as Attending Physician, Moise Jorge MD I agree with the assessment and [facility] plan of care. Disposition: 12/08/20 19:01 Discharged to Home. Impression: Nausea and vomiting, Diarrhea, unspecified. - Condition is Stable. - Discharge Instructions: Food Choices to Help Relieve Diarrhea, Adult, Viral Gastroenteritis, Adult, [id number]. - Prescriptions for Protonix 40 mg Oral Tablet - take 1 tablet by ORAL route once daily; 30 tablet. Zofran 4 mg Oral Tablet - take 1 tablet by ORAL route every 6 hours As needed; 20 tablet. - Medication Reconciliation Form, Thank You Letter, Antibiotic Education, Prescription Opioid Use, Work release form form. - Follow up: Emergency Department; When: As needed; Reason: Worsening of condition. Follow up: Private Physician; When: 2 - 3 days; Reason: Recheck today's complaints, Continuance of care, Re-evaluation by your physician. Signatures: Dispatcher [employer] EDSD Beronica Keys, ESTABLISHMENT GUIDE-C ESTABLISHMENT GUIDE-Moise Pearson MD MD cha Prokisch, Amanda RN RN ap3 Corrections: (The following items were deleted from the chart) 12/08 19:17 19:01 12/08/2020 19:01 Discharged to Home. Impression: Nausea and vomiting; Diarrhea, ap3 unspecified. Condition is Stable. Forms are Medication Reconciliation Form, Thank You Letter, Antibiotic Education, Prescription Opioid Use. Follow up: Emergency Department; When: As needed; Reason: Worsening of condition. Follow up: Private Physician; When: 2 - 3 days; Reason: Recheck today's complaints, Continuance of care, Re-evaluation by your physician. kb
[2020-12-08 19:25] VITALS: O2SAT 100
[2020-12-08 19:26] VITALS: BP 115/57
== END 2020-12-08 19:17 | disposition home or self-care (01) ==
LOC: ER 17:26
DX: K92.0 Hematemesis (principal); R19.7 Diarrhea, unspecified; J45.909 Unspecified asthma, uncomplicated; I10 Essential (primary) hypertension
CPT/HCPCS: 36415; 80048; 80076; 83690; 85025; 96361; 96374; 96375; 99284; C9113; J2405; J7030

== ENCOUNTER 2024-08-22 19:56 | Emergency (ER) | payer SELFPAY ==
--- OUTSIDE RECORDS SUMMARY | 2024-08-22 20:00 | XMS REPORT | Continuity of Care Document ---
Author Name Unknown Address [address] [facility]. [address] [place] [address] [facility] Address [address] [facility] [address] [place] [address] Care Team Providers Care Zinc Miner Name Role Phone Cinda Dupont Primary Care Physician [phone] Allergies, Adverse Reactions, Alerts Allergy Name Allergy Type Status Severity Reaction(s) Onset Date Inactive Date Treating Clinician Comments Source Amoxicil sp - Oral Propensi ty to adverse reaction to drug Active 2022-07 00:00: 00 Tyshawn F Jero Amoxicil sp Propensi ty to adverse reaction to drug Active 12-24 00:00: 00 Tyshawn Nigel Nogueira Medications Ordered Medication Name Filled Medication Name Start Date Stop Date Current Medication? Ordering Clinician Indication Dosage Frequency Signature (SIG) Comments Components Source ondansetron 4 mg disintegrat ing tablet 03-25 00:00: 00 Yes 1mg Tyshawn Nigel Nogueira INHALE 2 PUFFS AT 12 HOUR INTERVALS (MORNING AND EVENING). 2022-07 00:00: 00 Yes 4521 Tyshawn F Jero APPLY EVERY 12 HOURS FOR 3 DAYS, STOP FOR 4 DAYS, THEN REPEAT CYCLE UP TO 4 TIMES 2022-07 00:00: 00 Yes 5 Tyshawn F Jero INHALE 2 PUFFS AT 12 HOUR INTERVALS (MORNING AND EVENING). 2022-07 00:00: 00 Yes 4521 Tyshawn F Jero INHALE 2 PUFFS EVERY 4-6 HOURS, SPACED 60 SECONDS APART. 2022-07 00:00: 00 Yes [id number] Tyshawn F Jero TAKE 10 ML EVERY 4 HOURS NEEDED 2022-07 00:00: 00 07-29 00:00 :00 No [id number] Tyshawn F Jero TAKE 1 CAPSULE TWICE DAILY. 2022-07-16 00:00: 00 07-29 00:00 :00 No 500 Tyshawn Nogueira INHALE 2 PUFFS AT 12 HOUR INTERVALS (MORNING AND EVENING). 2022-07 00:00: 00 07-29 00:00 :00 No 4521 Tyshawn Nogueira TAKE 1 TO 2 TABLETS EVERY 8 HOURS NEEDED FOR PAIN. 2022-07 00:00: 00 07-29 00:00 :00 No 500 Tyshawn Nogueira TAKE 1 TABLET EVERY 12 HOURS DAILY. 2022-07 00:00: 00 07-29 00:00 :00 No 500 Tyshawn Nogueira TAKE 1 TABLET DAILY. 2022-07 00:00: 00 07-29 00:00 :00 No 10 Tyshawn Nogueira TAKE 2 TABLETS ON DAY 1 THEN TAKE 1 TABLET A DAY FOR 4 DAYS. 2022-07 00:00: 00 07-29 00:00 :00 No 250 Tyshawn Nogueira TAKE 1 TABLET DAILY. 03-25 00:00: 00 07-29 00:00 :00 No 6 Tyshawn Nogueira TAKE 3 TABS TWICE A DAY FOR 5 DAYS 03-25 00:00: 00 07-29 00:00 :00 No Tyshawn Manning Jero 1 CAP EVERY 8 HOURS NEEDED FOR COUGH 03-25 00:00: 00 07-29 00:00 :00 No 200 Tyshawn Nogueira TAKE 5 ML EVERY 4 TO 6 HOURS NEEDED FOR COUGH. 03-25 00:00: 00 07-29 00:00 :00 No [id number] Tyshawn Nogueira APPLY SPARINGLY TO AFFECTED AREA(S) TWICE DAILY 03-25 00:00: 00 07-29 00:00 :00 No 1 Tyshawn Nogueira Take 1 tablet orally once a day 109 00:00: 00 Yes Tyshawn Nogueira Insert rectally 3 times a day as needed for itching 2021-07 0-14 00:00: 00 Yes Tyshawn Nogueira Take 1 tablet (500 mg) by mouth 1 time per day for 7 days 0 9-08 00:00: 00 Yes Tyshawn Nogueira azithromyci n 500 mg tablet 1-14 00:00: 00 Yes 2mg Tyshawn Nogueira Zofran 4 mg tablet 0 9-24 00:00: 00 Yes 1mg Tyshawn Nogueira pantoprazol e 20 mg tablet,kenia yed release 0 6-23 00:00: 00 Yes 1mg Tyshawn Nogueira prednisone 20 mg tablet 0 5-27 00:00: 00 Yes 2mg Tyshawn Nogueira Advair HFA 230 mcg-21 mcg/actuati on aerosol inhaler 0 5-21 00:00: 00 Yes 1mcg/ac tuation Tyshawn Nogueira ProAir HFA 90 mcg/actuati on aerosol inhaler 0 5-21 00:00: 00 Yes 12mcg/a ctuatio n Tyshawn Nogueira loratadine 10 mg tablet 5-21 00:00: 00 Yes 1mg Tyshawn Nogueira pantoprazol e 20 mg tablet,kenia yed release 5-21 00:00: 00 Yes 1mg Tyshawn Nogueira fluticasone propionate 0.05 % topical cream 4-17 00:00: 00 Yes 1% Tyshawn Nogueira Advair HFA 230 mcg-21 mcg/actuati on aerosol inhaler 0 4-02 00:00: 00 Yes 1mcg/ac tuation Tyshawn Nogueira ProAir HFA 90 mcg/actuati on aerosol inhaler 0 4-02 00:00: 00 Yes 12mcg/a ctuatio n Tyshawn Nogueira loratadine 10 mg tablet 4-02 00:00: 00 Yes 1mg Tyshawn Nogueira ondansetron HCl 8 mg tablet 0 2-17 00:00: 00 Yes 1mg Tyshawn Nogueira ProAir HFA 90 mcg/actuati on aerosol inhaler 7-31 00:00: 00 Yes 12mcg/a ctuatio n Tyshawn Nogueira ofloxacin 0.3 % ear drops 7-09 00:00: 00 Yes 4% Tyshawn Nogueira prednisone 20 mg tablet 7-09 00:00: 00 Yes 1mg Tyshawn Nogueira ciprofloxac in 500 mg tablet 02-02 00:00: 00 Yes 1mg Tyshawn Nogueira mupirocin 2 % topical ointment 01-04 00:00: 00 Yes 1% Tyshawn Nogueira terbinafine HCl 250 mg tablet 01-04 00:00: 00 Yes 1mg Tyshawn Nogueira ibuprofen 800 mg tablet 01-04 00:00: 00 Yes 1mg Tyshawn Nogueira Bactrim DS 800 mg-160 mg tablet 11-18 00:00: 00 Yes 1mg Tyshawn Nogueira ibuprofen 800 mg tablet 11-18 00:00: 00 Yes 1mg Tyshawn Nogueira triamcinolo ne acetonide 0.5 % topical cream 09-30 00:00: 00 Yes 1% Tyshawn Nogueira prednisone 20 mg tablet 09-30 00:00: 00 Yes mg Tyshawn Nogueira triamcinolo ne acetonide 0.5 % topical cream 09-29 00:00: 00 Yes 1% Tyshawn Nogueira prednisone 20 mg tablet 09-29 00:00: 00 Yes mg Tyshawn Nogueira podofilox 0.5 % topical solution 01-06 00:00: 00 Yes 1% Tyshawn Nogueira cephalexin 500 mg capsule 01-06 00:00: 00 Yes 1mg Tyshawn Nogueira podofilox 0.5 % topical solution 12-24 00:00: 00 Yes 1% Tyshawn Nogueira Vital Signs Vital Name Observation Time Observation Value Comments S ource BP Diastolic 2024-03-25 15:16:00 89 mm[Hg] Omar Nogueira Weight Measured 2024-03-25 15:16:00 196.00 pounds Tyshawn Nogueira Height Measured 2024-03-25 15:16:00 67.00 inches Tyshawn Nogueira Body Temperature 2024-03-25 15:16:00 98.20 degrees Tyshawn Nogueira Heart Rate 2024-03-25 15:16:00 68.00 /min Faby Nogueira Respiratory Rate 2024-03-25 15:16:00 18.00 /min Tyshawn Nogueira BP Systolic 2024-03-25 15:16:00 114 mm[Hg] Step hen F Jero BP Systolic 2023-07-24 09:53:00 124 mm[Hg] Step hen F Jero BP Diastolic 2023-07-24 09:53:00 76 mm[Hg] Omar phen F Jero Weight Measured 2023-07-24 09:53:00 221.40 pounds Tyshawn F Jero Height Measured 2023-07-24 09:53:00 67.00 inches Tyshawn F Jero Body Temperature 2023-07-24 09:53:00 98.30 degrees Tyshawn F Jero Heart Rate 2023-07-24 09:53:00 75.00 /min Faby en F Jero Respiratory Rate 2023-07-24 09:53:00 Tyshawn F Jero Respiratory Rate 2023-06-12 14:29:00 Tyshawn F Jero BP Systolic 2023-06-12 14:29:00 119 mm[Hg] Step hen F Jero BP Diastolic 2023-06-12 14:29:00 65 mm[Hg] Omar phen F Jero Weight Measured 2023-06-12 14:29:00 215.00 pounds Tyshawn F Jero Height Measured 2023-06-12 14:29:00 67.00 inches Tyshawn F Jero Body Temperature 2023-06-12 14:29:00 97.60 degrees Tyshawn F Jero Heart Rate 2023-06-12 14:29:00 65.00 /min Faby en F Jero BP Systolic 2023-05-15 10:27:00 124 mm[Hg] Step hen F Jero BP Diastolic 2023-05-15 10:27:00 74 mm[Hg] Omar phen F Jero Weight Measured 2023-05-15 10:27:00 218.00 pounds Tyshawn F Jero Height Measured 2023-05-15 10:27:00 67.00 inches Tyshawn F Jero Body Temperature 2023-05-15 10:27:00 98.30 degrees Tyshawn F Jero Heart Rate 2023-05-15 10:27:00 69.00 /min Faby en F Jero Respiratory Rate 2023-05-15 10:27:00 18.00 /min Tyshawn F Jero BP Systolic 2023-03-25 17:19:00 138 mm[Hg] Step hen F Jero BP Diastolic 2023-03-25 17:19:00 85 mm[Hg] Omar phen F Jero Weight Measured 2023-03-25 17:19:00 211.40 pounds Tyshawn F Jero Height Measured 2023-03-25 17:19:00 67.00 inches Tyshawn F Jero Body Temperature 2023-03-25 17:19:00 98.50 degrees Tyshawn F Jero Heart Rate 2023-03-25 17:19:00 66.00 /min Faby en F Jero Respiratory Rate 2023-03-25 17:19:00 17.00 /min Tyshawn F Jero BP Systolic 2020-08-10 15:21:00 126 mm[Hg] Step hen F Jero BP Diastolic 2020-08-10 15:21:00 70 mm[Hg] Omar phen F Jero Weight Measured 2020-08-10 15:21:00 210.00 pounds Tyshawn F Jero Height Measured 2020-08-10 15:21:00 67.00 inches Tyshawn F Jero Body Temperature 2020-08-10 15:21:00 99.00 degrees Tyshawn F Jero Heart Rate 2020-08-10 15:21:00 79.00 /min Faby en F Jero Respiratory Rate 2020-08-10 15:21:00 18.00 /min Tyshawn F Jero BP Systolic 2020-03-13 14:00:00 125 mm[Hg] Step hen F Jero BP Diastolic 2020-03-13 14:00:00 85 mm[Hg] Omar phen F Jero Weight Measured 2020-03-13 14:00:00 237.00 pounds Tyshawn F Jero Height Measured 2020-03-13 14:00:00 67.00 inches Tyshawn F Jero Body Temperature 2020-03-13 14:00:00 99.10 degrees Tyshawn F Jero Heart Rate 2020-03-13 14:00:00 69.00 /min Faby en F Jero Respiratory Rate 2020-03-13 14:00:00 18.00 /min Tyshawn F Jero BP Systolic 2019-12-29 08:57:00 152 mm[Hg] Step hen F Jero BP Diastolic 2019-12-29 08:57:00 89 mm[Hg] Omar phen F Jero Weight Measured 2019-12-29 08:57:00 240.40 pounds Tyshawn F Jero Height Measured 2019-12-29 08:57:00 67.00 inches Tyshawn F Jero Body Temperature 2019-12-29 08:57:00 98.70 degrees Tyshawn F Jero Heart Rate 2019-12-29 08:57:00 76.00 /min Faby en F Jero Respiratory Rate 2019-12-29 08:57:00 18.00 /min Tyshawn F Jero BP Systolic 2019-12-16 11:03:00 127 mm[Hg] Step hen F Jero BP Diastolic 2019-12-16 11:03:00 77 mm[Hg] Omar phen F Jero Weight Measured 2019-12-16 11:03:00 237.60 pounds Tyshawn F Jero Height Measured 2019-12-16 11:03:00 67.00 inches Tyshawn F Jero Body Temperature 2019-12-16 11:03:00 98.10 degrees Tyshawn F Jero Heart Rate 2019-12-16 11:03:00 72.00 /min Faby en F Jero Respiratory Rate 2019-12-16 11:03:00 18.00 /min Tyshawn F Jero BP Systolic 2019-11-12 10:53:00 131 mm[Hg] Step hen F Jero BP Diastolic 2019-11-12 10:53:00 82 mm[Hg] Omar phen F Jero Weight Measured 2019-11-12 10:53:00 235.80 pounds Tyshawn F Jero Height Measured 2019-11-12 10:53:00 67.00 inches Tyshawn F Jero Body Temperature 2019-11-12 10:53:00 98.30 degrees Tyshawn F Jero Heart Rate 2019-11-12 10:53:00 70.00 /min Faby en F Jero Respiratory Rate 2019-11-12 10:53:00 16.00 /min Tyshawn F Jero Procedures Procedure Date / Time Performed Performing Clinicia n Source Avulsion Nail Plate Partial/complete Simple 1 2017-11-18 00:00:00 Tyshawn F Aust in Encounters Start Date/Time End Date/Time Encounter Type Admission Type Attending [facility] Care Department Encounter ID Source 2024-03-25 15:05:29 2024-03-25 15:05:29 Outpatient [facility] [id number] Tyshawn F Jero 2024-03-25 00:00:00 2024-03-25 00:00:00 Outpatient Visit [facility] [id number] Tyshawn Nogueira 2023-07-24 09:50:51 2023-07-24 09:50:51 Outpatient [facility] [id number] Tyshawn Nogueira 2023-06-12 14:28:36 2023-06-12 14:28:36 Outpatient [facility] [id number] Tyshawn Nogueira 2023-05-15 10:02:00 2023-05-15 10:02:00 Outpatient [facility] [id number] Tyshawn Nogueira 2023-03-25 17:05:22 2023-03-25 17:05:22 Outpatient [facility] [id number] Tyshawn Nogueira Results Test Description Test Time Test Comments Results Result Co mments Source Tyshawn NogueiraCHLAMYDIA, AMPLIFIED, [id number] 00:00:00* Test Item Value Reference Range Interpretation Comme nts CHLAMYDIA, NAAT (test code = 41403) NEGATIVE Tyshawn NogueiraGC, AMPLIFIED, [id number] 00:00:00* Test Item Value Reference Range Interpretation Comme nts GONORRHEA, NAAT (test code = 76053) NEGATIVE Tyshawn NogueiraHIV AB/AG COMBO RFLX [id number] 00:00:00* Test Item Value Reference Range Interpretation Comme nts HIV 1/2 4TH GEN, RFLX CONF ( test code = 3514) NON-REACTIVE Tyshawn NogueiraACUTE HEPATITIS [id number] 00:00:00* Test Item Value Reference Range Interpretation Comme nts HEPATITIS A IgM (test code = 64998) NON-REACTIVE HEPATITIS B CORE IgM (test c ode = 4644) NON-REACTIVE HEPATITIS B SURF AG (test co de = 2739) NON-REACTIVE HEPATITIS C ANTIBODY (test c ode = 4675) NON-REACTIVE INTERPRETATION HEPATITIS A: (test code = 2552) (NOTE) INTERPRETATION HEPATITIS B: (test code = 94454) (NOTE) INTERPRETATION HEPATITIS C: (test code = 68362) (NOTE) yTshawn [id number] 00:00:00* Test Item Value Reference Range Interpretation Comme nts RPR RESULT (test code = 3501) NON-REACTIVE RPR TITER (test code = 3500) NOT INDIC. TITER Tyshawn NogueiraSARS-CoV-2 (COVID-19) by RT-PCR (HIGH RISK)2020-07-25 00:00:00* Test Item Value Reference Range Interpretation Comme nts SARS-CoV-2 INTERPRETATION (t est code = 79987) NEGATIVE SOURCE (test code = 37483) NOT SPECIFIED Tyshawn NogueiraSARS-CoV-2 (COVID-19) by RT-PCR (HIGH RISK)2020-04-23 00:00:00* Test Item Value Reference Range Interpretation Comme nts SARS-CoV-2 INTERPRETATION (test code = 55901) Negative SOURCE (test code = 14609) NASOPHARYNGEA L_SWAB _IN_VTM__UTM Tyshawn Manning [id number] (COVID-19) by RT-PCR (HIGH RISK)2020-01-28 00:00:00* Test Item Value Reference Range Interpretation Comme nts SARS-CoV-2 INTERPRETATION (test code = 37836) NEGATIVE SOURCE (test code = 61944) NASOPHARYNGEAL Tyshawn NogueiraCOMPREHENSIVE METABOLIC [id number] 00:00:00* Test Item Value Reference Range Interpretation Comme nts GLUCOSE (test code = 2217) 96 MG/DL BUN (test code = 2208) 10 MG/DL CREATININE (test code = 2214) 0.85 MG/DL eGFR AMER. (test cod e = 28368) 143 ML/MIN/1.73 eGFR NON- AMER. (test code = 14031) 124 ML/MIN/1.73 CALC BUN/CREAT (test code = 2235) 12 RATIO SODIUM (test code = 2231) 141 MEQ/L POTASSIUM (test code = 2228) 4.4 MEQ/L CHLORIDE (test code = 2215) 105 MEQ/L CARBON DIOXIDE (test code = 2206) 22 MEQ/L CALCIUM (test code = 2209) 9.4 MG/DL PROTEIN, TOTAL (test code = 2229) 7.2 G/DL ALBUMIN (test code = 2201) 4.6 G/DL CALC GLOBULIN (test code = 2240) 2.6 G/DL CALC A/G RATIO (test code = 2234) 1.8 RATIO BILIRUBIN, TOTAL (test code = 2207) <0.2 MG/DL ALKALINE PHOSPHATASE (test code = 2204) 151 U/L AST (test code = 2218) 24 U/L ALT (test code = 2219) 32 U/L Tyshawn NogueiraLIPID [id number] 00:00:00* Test Item Value Reference Range Interpretation Comme nts CHOLESTEROL (test code = 2210) 242 MG/DL TRIGLYCERIDES (test code = 2232) 85 MG/DL HDL CHOLESTEROL (test code = 2220) 43 MG/DL CALC LDL CHOL (test code = 2237) 180 MG/DL RISK RATIO LDL/HDL (test cod e = 2238) 4.19 RATIO Tyshawn Manning AustinCBC W/AUTO [id number] 00:00:00* Test Item Value Reference Range Interpretation Comme nts WBC (test code = 1001) 8.2 K/UL RBC (test code = 1002) 5.49 M/UL HEMOGLOBIN (test code = 1003) 14.8 G/DL HEMATOCRIT (test code = 1004) 43.3 % MCV (test code = 1005) 78.9 fL MCH (test code = 1006) 27.0 PG MCHC (test code = 1007) 34.2 G/DL RDW (test code = 1038) 13.6 % NEUTROPHILS (test code = 1008) 61.1 % LYMPHOCYTES (test code = 1010) 28.8 % MONOCYTES (test code = 1011) 4.6 % EOSINOPHILS (test code = 1012) 5.0 % BASOPHILS (test code = 1013) 0.5 % PLATELET COUNT (test code = 1015) 175 K/UL Tyshawn NogueiraHEMOGLOBIN [id number] 00:00:00* Test Item Value Reference Range Interpretation Comme adan HEMOGLOBIN A1c (test code = 64100) 5.5 % Tyshawn NogueiraCBC W/AUTO [id number] 00:00:00* Test Item Value Reference Range Interpretation Comme nts WBC (test code = 1001) 8.8 K/UL RBC (test code = 1002) 5.63 M/UL HEMOGLOBIN (test code = 1003) 15.0 G/DL HEMATOCRIT (test code = 1004) 44.2 % MCV (test code = 1005) 78.5 fL MCH (test code = 1006) 26.6 PG MCHC (test code = 1007) 33.9 G/DL RDW (test code = 1038) 13.1 % NEUTROPHILS (test code = 1008) 63.0 % LYMPHOCYTES (test code = 1010) 28.1 % MONOCYTES (test code = 1011) 4.6 % EOSINOPHILS (test code = 1012) 4.1 % BASOPHILS (test code = 1013) 0.2 % PLATELET COUNT (test code = 1015) 195 K/UL Tyshawn NogueiraCOMPREHENSIVE METABOLIC [id number] 00:00:00* Test Item Value Reference Range Interpretation Comme nts GLUCOSE (test code = 2217) 96 MG/DL BUN (test code = 2208) 9 MG/DL CREATININE (test code = 2214) 0.96 MG/DL eGFR AMER. (test cod e = 42736) 130 ML/MIN/1.73 eGFR NON- AMER. (test code = 23676) 112 ML/MIN/1.73 CALC BUN/CREAT (test code = 2235) 9 RATIO SODIUM (test code = 2231) 142 MEQ/L POTASSIUM (test code = 2228) 4.8 MEQ/L CHLORIDE (test code = 2215) 103 MEQ/L CARBON DIOXIDE (test code = 2206) 25 MEQ/L CALCIUM (test code = 2209) 9.7 MG/DL PROTEIN, TOTAL (test code = 2229) 7.4 G/DL ALBUMIN (test code = 2201) 4.8 G/DL CALC GLOBULIN (test code = 2240) 2.6 G/DL CALC A/G RATIO (test code = 2234) 1.8 RATIO BILIRUBIN, TOTAL (test code = 2207) <0.2 MG/DL ALKALINE PHOSPHATASE (test code = 2204) 141 U/L AST (test code = 2218) 16 U/L ALT (test code = 2219) 20 U/L Tyshawn NogueiraCOMPREHENSIVE METABOLIC [id number] 00:00:00* Test Item Value Reference Range Interpretation Comme nts GLUCOSE (test code = 2217) 107 MG/DL BUN (test code = 2208) 8 MG/DL CREATININE (test code = 2214) 0.83 MG/DL eGFR AMER. (test cod e = 78828) 145 ML/MIN/1.73 eGFR NON- AMER. (test code = 63961) 125 ML/MIN/1.73 CALC BUN/CREAT (test code = 2235) 10 RATIO SODIUM (test code = 2231) 143 MEQ/L POTASSIUM (test code = 2228) 4.4 MEQ/L CHLORIDE (test code = 2215) 106 MEQ/L CARBON DIOXIDE (test code = 2206) 23 MEQ/L CALCIUM (test code = 2209) 9.3 MG/DL PROTEIN, TOTAL (test code = 2229) 7.1 G/DL ALBUMIN (test code = 2201) 4.6 G/DL CALC GLOBULIN (test code = 2240) 2.5 G/DL CALC A/G RATIO (test code = 2234) 1.8 RATIO BILIRUBIN, TOTAL (test code = 2207) <0.2 MG/DL ALKALINE PHOSPHATASE (test code = 2204) 142 U/L AST (test code = 2218) 20 U/L ALT (test code = 2219) 23 U/L Tyshawn NogueiraCOMPREHENSIVE METABOLIC [id number] 00:00:00* Test Item Value Reference Range Interpretation Comme nts GLUCOSE (test code = 2217) 91 MG/DL BUN (test code = 2208) 8 MG/DL CREATININE (test code = 2214) 0.82 MG/DL eGFR AMER. (test cod e = 34590) 147 ML/MIN/1.73 eGFR NON- AMER. (test code = 16515) 126 ML/MIN/1.73 CALC BUN/CREAT (test code = 2235) 10 RATIO SODIUM (test code = 2231) 143 MEQ/L POTASSIUM (test code = 2228) 4.4 MEQ/L CHLORIDE (test code = 2215) 104 MEQ/L CARBON DIOXIDE (test code = 2206) 25 MEQ/L CALCIUM (test code = 2209) 9.5 MG/DL PROTEIN, TOTAL (test code = 2229) 7.5 G/DL ALBUMIN (test code = 2201) 4.7 G/DL CALC GLOBULIN (test code = 2240) 2.8 G/DL CALC A/G RATIO (test code = 2234) 1.7 RATIO BILIRUBIN, TOTAL (test code = 2207) 0.2 MG/DL ALKALINE PHOSPHATASE (test code = 2204) 152 U/L AST (test code = 2218) 22 U/L ALT (test code = 2219) 33 U/L Tyshawn NogueiraPSA, [id number] 00:00:00* Test Item Value Reference Range Interpretation Comme nts PSA, TOTAL (test code = 2606) 0.42 NG/ML Tyshawn NogueiraCOMPREHENSIVE METABOLIC [id number] 00:00:00* Test Item Value Reference Range Interpretation Comme nts GLUCOSE (test code = 2217) 89 MG/DL BUN (test code = 2208) 9 MG/DL CREATININE (test code = 2214) 0.89 MG/DL eGFR AMER. (test cod e = 72131) 142 ML/MIN/1.73 eGFR NON- AMER. (test code = 03631) 122 ML/MIN/1.73 CALC BUN/CREAT (test code = 2235) 10 RATIO SODIUM (test code = 2231) 141 MEQ/L POTASSIUM (test code = 2228) 4.3 MEQ/L CHLORIDE (test code = 2215) 103 MEQ/L CARBON DIOXIDE (test code = 2206) 24 MEQ/L CALCIUM (test code = 2209) 9.6 MG/DL PROTEIN, TOTAL (test code = 2229) 7.5 G/DL ALBUMIN (test code = 2201) 4.8 G/DL CALC GLOBULIN (test code = 2240) 2.7 G/DL CALC A/G RATIO (test code = 2234) 1.8 RATIO BILIRUBIN, TOTAL (test code = 2207) 0.2 MG/DL ALKALINE PHOSPHATASE (test code = 2204) 176 U/L AST (test code = 2218) 23 U/L ALT (test code = 2219) 36 U/L Tyshawn Nogueira
--- NOTE | 2024-08-22 20:26 | ER ---
Nurse's Notes [facility] Name: Jean-Paul Will Age: 29 yrs Sex: Male : 1995 Arrival Date: 08/22/2024 Time: 19:56 Bed DX4 Private MD: Diagnosis: First Degree Facial Milligan- thermal Presentation: 08/22 20:01 Chief complaint: Patient states: patient was cooking and boiling water splashed in his me1 face on nose, forehead and right eyelid. Skin is red and intact in triage. Coronavirus screen: Vaccine status: Patient reports receiving the 2nd dose of the covid vaccine. Ebola Screen: No symptoms or risks identified at this time. Initial Sepsis Screen: Does the patient meet any 2 criteria? No. Patient's initial sepsis screen is negative. Does the patient have a suspected source of infection? No. Patient's initial sepsis screen is negative. Risk Assessment: Do you want to hurt yourself or someone else? Patient reports no desire to harm self or others. Onset of symptoms was August 22, 2024 at 19:30. 20:01 Method Of Ar[place] [facility] [place]:01 Acuity: CHASITY 3 me1 Historical: - Allergies: 20:03 Amoxicillin; me1 - PMHx: 20:03 Asthma; Hypertension; me1 - PSHx: 20:03 None; me1 - Immunization history:: Adult Immunizations up to date. - Infectious Disease History:: Denies. - Social history:: Smoking status: Reported history of juuling and/or vaping. Screenin:32 [facility] ED Fall Risk Assessment (Adult) History of falling in the last 3 months, kj2 including since admission No falls in past 3 months (0 pts) Confusion or Disorientation No (0 pts) Intoxicated or Sedated No (0 pts) Impaired Gait No (0 pts) Mobility Assist Device Used No (0 pt) Altered Elimination No (0 pt) Score/Fall Risk Level 0 - 2 = Low Risk Maintained a safe environment, Hourly rounding (assess needs \T\ fall precautionary measures) done. Abuse screen: Denies threats or abuse. Denies injuries from another. Nutritional screening: No deficits noted. Tuberculosis screening: No symptoms or risk factors identified. Assessment: 20:30 General: Appears in no apparent distress. Behavior is calm, cooperative. Pain: kj2 Complains of pain in face Pain currently is 6 out of 10 on a pain scale. Neuro: Level of Consciousness is awake, alert, obeys commands, Oriented to person, place, time, situation. Cardiovascular: Patient's skin is warm and dry. Respiratory: Airway is patent Respiratory effort is even, unlabored. GI: No signs and/or symptoms were reported involving the gastrointestinal system. : No signs and/or symptoms were reported regarding the genitourinary system. Vital Signs: 20:01 BP 162 / 68; Pulse 84; Resp 16; Temp 98.4; Pulse Ox 97% ; Weight 91.63 kg; Height 5 ft. me1 7 in. ; Pain 7/10; 20:31 BP 156 / 72; Pulse 78; Resp 20; Temp 98; Pulse Ox 100% on R/A; kj2 20:01 Body Mass Index 31.64 (91.63 kg, 170.18 cm) me1 20:01 Pain Scale: Adult me1 ED Course: 19:59 Patient arrived in ED. im 20:01 Timmy Merritt DO is Attending Physician. ms3 20:03 Triage completed. me1 20:03 Arm band placed on Patient placed in an exam room. me1 20:19 Adama Kaplan DO is Referral Physician. ms3 20:29 Ida Butler, RN is Primary Nurse. kj2 20:32 Patient has correct armband on for positive identification. Adult w/ patient. Provided kj2 Education on: infection control, safety. 20:33 No provider procedures requiring assistance completed. Patient did not have IV access kj2 during this emergency room visit. Administered Medications: 20:41 Drug: HYDROcodone-acetaminophen PO 5 mg-325 mg 1 tabs PO once Route: PO; kj2 20:44 Follow up: Response: No adverse reaction; Medication administered at discharge. kj2 20:41 Drug: Bacitracin Topical Ointment (500 unit/g) 1 application Topical once Route: kj2 Topical; Site: affected area; 20:44 Follow up: Response: Medication administered at discharge. kj2 20:42 Not Given (patient recently had tetanus): boostrix tdap0.5 ml IM once; as a single dose kj2 Medication: 20:33 VIS not applicable for this client. kj2 Outcome: 20:26 Discharge ordered by . ms3 20:33 Discharged to home ambulatory, kj2 20:33 Condition: stable 20:33 Discharge instructions given to patient, Instructed on discharge instructions, follow up and referral plans. Demonstrated understanding of instructions, follow-up care, 20:45 Patient left the ED. kj2 Signatures: Timmy Merritt DO DO ms3 Yuliet Aquino Michelle, RN RN me1 Ida Butler RN RN kj2
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
[2024-08-22] MEDS ORDERED: HYDROCODONE/APAP 5/325 MG TAB ONE (20:30)
[2024-08-23 00:16] VITALS: BP 156/72; TEMP 98; O2SAT 100
== END 2024-08-22 20:45 | disposition home or self-care (01) ==
LOC: ER 19:56
DX: T20.10XA Burn of first degree of head, face, and neck, unspecified site, initial encounter (principal)
CPT/HCPCS: 99283